=== PATIENT | male | born 1950 | race Caucasian/White ===

== ENCOUNTER 2018-06-23 15:10 | Emergency (ER) | payer MEDICARE, BC ==
[2018-06-23] MEDS ORDERED: Diphtheria,Pertussis(Acell),Tetanus Vaccine 0.5 ML Syringe IM ONE (15:32)
--- NOTE | 2018-06-23 15:35 | EDM.PDOC ---
ED HPI GENERAL MEDICAL PROBLEM - General Chief Complaint: Upper Extremity Injury/Pain Stated Complaint: RIGHT PINKIE FINGER CUT Time Seen by Provider: 06/23/18 15:33 Source of Information: Reports: Patient History Limitations: Reports: No Limitations - History of Present Illness INITIAL COMMENTS - FREE TEXT/NARRATIVE: HISTORY AND PHYSICAL: History of present illness: Patient is a 67-year-old male here with complaint of left pinky finger injury. Patient states that a cow kicked a gate smashing his finger in the gate causing a partial finger amputation. He is uncertain of his last tetanus. Review of systems: As per history of present illness and below otherwise all systems reviewed and negative. Past medical history: As per history of present illness and as reviewed below otherwise noncontributory. Surgical history: As per history of present illness and as reviewed below otherwise noncontributory. Social history: No reported history of drug or alcohol abuse. Family history: As per history of present illness and as reviewed below otherwise noncontributory. Physical exam: General: Patient sitting comfortably in no acute distress and nontoxic appearing HEENT: Atraumatic, normocephalic, pupils reactive, negative for conjunctival pallor or scleral icterus, mucous membranes moist, throat clear, neck supple, nontender, trachea midline. No meningeal signs. Lungs: Clear to auscultation, breath sounds equal bilaterally, chest nontender. Heart: S1S2, regular, negative for clicks, rubs, or overt murmur. Abdomen: Soft, nondistended, nontender. Negative for masses or hepatosplenomegaly. Negative for costovertebral tenderness. No rigidity, rebound , guarding. Pelvis: Stable nontender. Genitourinary: Deferred. Rectal: Deferred. Extremities: Right pinky finger partial amputation with distal phalanx exposed. negative for cords or calf pain. Neurovascular unremarkable. Neuro: Awake, alert, oriented. Cranial nerves II through XII unremarkable. Cerebellum unremarkable. Motor and sensory unremarkable throughout. Exam nonfocal. Notes: Dr. Porras saw patient in the ED, patient had partial amputation repair done in ED. Diagnostics: x-ray left pinky finger Therapeutics: Tdap Ancef 1g IM Digital block Prescriptions: Keflex Dazey Impression: hand injury, 5th distal left finger avulsion injury, open fracture Plan: 1. Take antibiotic as instructed, Dazey as needed for pain. Do not take Dazey while driving as it may make you drowsy 2. Follow up with Dr. Porras in 2 weeks 3. Return to ED as needed as discussed Definitive disposition and diagnosis as appropriate pending reevaluation and review of above. Left Finger-Little Pain Score (Numeric/FACES): 5 - Related Data Allergies Allergy/AdvReac Type Severity Reaction Status Date / Time No Known Allergies Allergy Verified 06/23/18 15:34 Home Meds: Home Meds Allopurinol [Zyloprim] 2 tab PO DAILY 03/31/18 [History] amLODIPine Besylate [Amlodipine Besylate] 10 mg PO DAILY 03/31/18 [History] atorvaSTATin Calcium [Atorvastatin Calcium] 10 mg PO DAILY 03/31/18 [History] Past Medical History HEENT History: Reports: Allergic Rhinitis Cardiovascular History: Reports: High Cholesterol, Hypertension Gastrointestinal History: Reports: None Musculoskeletal History: Reports: Gout Other Musculoskeletal History: states possible pelvic fx years ago due to a fall off a horse Endocrine/Metabolic History: Reports: Obesity/BMI 30+ - Past Surgical History Head Surgeries/Procedures: Reports: None GI Surgical History: Reports: Colonoscopy Musculoskeletal Surgical History: Reports: Other (See Below) Other Musculoskeletal Surgeries/Procedures:: partial (tip) pointer finger amputation Review of Systems - Review of Systems Review Of Systems: ROS reveals no pertinent complaints other than HPI. ED EXAM, GENERAL - Physical Exam Exam: See Below (see dictation) Course - Vital Signs Last Recorded V/S: Last Vital Signs Temp 97.9 F 06/23/18 15:28 Pulse 96 06/23/18 15:28 Resp 20 06/23/18 15:28 BP 139/93 H 06/23/18 15:28 Pulse Ox 98 06/23/18 15:28 - Orders/Labs/Meds Orders: Active Orders 24 hr Category Date Time Status Vaccines to be Administered [RC] PER UNIT ROUTINE Care 06/23/18 15:32 Active Meds: Medications Discontinued Medications Generic Name Dose Route Start Last Admin Trade Name Freq PRN Reason Stop Dose Admin Bupivacaine HCl 10 ml 06/23/18 15:43 06/23/18 15:55 Sensorcaine-Mpf 0.5% INJECT 06/23/18 15:44 10 ml ONETIME ONE Administration Bupivacaine HCl Confirm 06/23/18 16:55 06/23/18 17:34 Sensorcaine-Mpf 0.25% Administered 06/23/18 16:56 Not Given Dose 10 ml .ROUTE .STK-MED ONE Bupivacaine HCl 10 ml 06/23/18 16:57 06/23/18 17:33 Sensorcaine-Mpf 0.25% INJECT 06/23/18 16:58 10 ml ONETIME ONE Administration Cefazolin Sodium 1 gm 06/23/18 15:44 06/23/18 15:55 Ancef IM 06/23/18 15:45 1 gm ONETIME ONE Administration Diphtheria/Tetanus/Acell Pertussis 0.5 ml 06/23/18 15:32 06/23/18 15:42 Adacel IM 06/23/18 15:33 0.5 ml .ONCE ONE Administration Departure - Departure Time of Disposition: 17:38 Disposition: Home, Self-Care 01 Condition: Good Clinical Impression: Avulsion, finger tip, Hand injury - Discharge Information Instructions: Traumatic Finger Amputation, Sutured Wound Care Referrals: Harjeet Constantino MD [Primary Care Provider] - Saloni Porras MD [Physician] - 2 Weeks (partial ampution repair follow up ) Forms: ED Department Discharge Additional Instructions: The following information is given to patients seen in the emergency department who are being discharged to home. This information is to outline your options for follow-up care. We provide all patients seen in our emergency department with a follow-up referral. The need for follow-up, as well as the timing and circumstances, are variable depending upon the specifics of your emergency department visit. If you don't have a primary care physician on staff, we will provide you with a referral. We always advise you to contact your personal physician following an emergency department visit to inform them of the circumstance of the visit and for follow-up with them and/or the need for any referrals to a consulting specialist. The emergency department will also refer you to a specialist when appropriate. This referral assures that you have the opportunity for follow-up care with a specialist. All of these measure are taken in an effort to provide you with optimal care, which includes your follow-up. Under all circumstances we always encourage you to contact your private physician who remains a resource for coordinating your care. When calling for follow-up care, please make the office aware that this follow-up is from your recent emergency room visit. If for any reason you are refused follow-up, please contact the [facility] Emergency Department at and asked to speak to the emergency department charge nurse. [facility] Specialty Care - Hand & Plastic Surgery Professional Building [address] [place] [address], [address] [place] [address] 1. Take antibiotic as instructed, Dazey as needed for pain. Do not take Dazey while driving as it may make you drowsy 2. Follow up with Dr. Porras in 2 weeks 3. Return to ED as needed as discussed - My Orders Last 24 Hours: My Active Orders 06/23/18 15:32 Vaccines to be Administered [RC] PER UNIT ROUTINE - Assessment/Plan Last 24 Hours: My Active Orders 06/23/18 15:32 Vaccines to be Administered [RC] PER UNIT ROUTINE
[2018-06-23] MEDS ORDERED: Bupivacaine 0.5% 10 ML SDV INJECT ONE (15:43)
[2018-06-23] MEDS ORDERED: ceFAZolin 1 GM Vial IM ONE (15:44)
--- NOTE | 2018-06-23 16:40 | CR ---
EXAMINATION: Left hand, fifth digit HISTORY: Injury COMPARISON: None TECHNIQUE: 3 views FINDINGS/IMPRESSION: There is an amputation of the distal aspect of the fifth digit involving a very small portion of the distal phalanx. The remaining osseous structures and joint spaces appear preserved. Bone mineralization is otherwise normal.
[2018-06-23] MEDS ORDERED: Bupivacaine 0.25% 10 ML SDV ONE (16:55)
[2018-06-23] MEDS ORDERED: Bupivacaine 0.25% 10 ML SDV INJECT ONE (16:57)
== END 2018-06-23 17:52 | disposition home or self-care (01) ==
LOC: MW.ED 15:10
DX: S62.637B Displaced fracture of distal phalanx of left little finger, initial encounter for open fracture (principal); I10 Essential (primary) hypertension; E66.9 Obesity, unspecified; Z23 Encounter for immunization; Z79.899 Other long term (current) drug therapy; W23.0XXA Caught, crushed, jammed, or pinched between moving objects, initial encounter
CPT/HCPCS: 64450; 73140; 90471; 90715; 96372; 99283; J0690; J3490

== ENCOUNTER 2021-03-04 14:49 | Observation (INO) | payer MEDICARE, OTHER ==
--- NOTE | 2021-03-04 15:27 | EDM.PDOC ---
ED HPI GENERAL MEDICAL PROBLEM - General Chief Complaint: Respiratory Problem Stated Complaint: COUGH, SOB Time Seen by Provider: 03/04/21 14:51 Source of Information: Reports: Patient History Limitations: Reports: No Limitations - History of Present Illness INITIAL COMMENTS - FREE TEXT/NARRATIVE: Patient is a 70-year-old male who presents today for chronic cough. Patient has had a cough for the past 4 weeks. States he saw his doctor multiple times been given codeine cough syrup he is taking Tessalon Perles as well as an albuterol inhaler and he says his cough. He becomes concerned because he has a coughing fit and it sometimes makes him lightheaded he was in a pass out. He denies any chest pain any shortness of breath or any other complaints his main concern is a cough he said he had x-rays done and also been tested for Covid has been negative. ribs Pain Score (Numeric/FACES): 7 - Related Data Allergies Allergy/AdvReac Type Severity Reaction Status Date / Time No Known Allergies Allergy Verified 03/04/21 15:00 Home Meds: Home Meds allopurinoL [Zyloprim] 2 tab PO DAILY 03/31/18 [History] amLODIPine Besylate [Amlodipine Besylate] 10 mg PO DAILY 03/31/18 [History] atorvaSTATin Calcium [Atorvastatin Calcium] 10 mg PO DAILY 03/31/18 [History] Albuterol Sulfate [Albuterol Sulfate Hfa] 8.5 gm IH 03/04/21 [History] Azelastine [Astelin Nasal Soln] 2 inhalation DEANDRE BID 03/04/21 [History] Benzonatate [Tessalon Perles] 100 mg PO TID 03/04/21 [History] Codeine/guaiFENesin [guaiFENesin-Codeine Syrup] 5 ml PO Q4H 03/04/21 [History] Past Medical History HEENT History: Reports: Allergic Rhinitis Cardiovascular History: Reports: High Cholesterol, Hypertension Gastrointestinal History: Reports: None Musculoskeletal History: Reports: Gout Other Musculoskeletal History: states possible pelvic fx years ago due to a fall off a horse Endocrine/Metabolic History: Reports: Obesity/BMI 30+ - Infectious Disease History Infectious Disease History: Reports: Chicken Pox - Past Surgical History Head Surgeries/Procedures: Reports: None GI Surgical History: Reports: Colonoscopy Musculoskeletal Surgical History: Reports: Other (See Below) Other Musculoskeletal Surgeries/Procedures:: partial (tip) pointer finger amputation Social & Family History - Tobacco Use Month/Year Tobacco Last Used: chewing tobacco - Recreational Drug Use Recreational Drug Use: No ED ROS GENERAL - Review of Systems Review Of Systems: See Below Constitutional: Reports: No Symptoms HEENT: Reports: No Symptoms Respiratory: Reports: Cough Cardiovascular: Reports: No Symptoms Endocrine: Reports: No Symptoms GI/Abdominal: Reports: No Symptoms : Reports: No Symptoms Musculoskeletal: Reports: No Symptoms Skin: Reports: No Symptoms Neurological: Reports: No Symptoms Psychiatric: Reports: No Symptoms Hematologic/Lymphatic: Reports: No Symptoms Immunologic: Reports: No Symptoms ED EXAM, GENERAL - Physical Exam Exam: See Below Exam Limited By: No Limitations General Appearance: Alert, WD/WN, No Apparent Distress Eye Exam: Bilateral Eye: EOMI, PERRL Ears: Normal External Exam Nose: Normal Inspection Head: Atraumatic Neck: Normal Inspection, Supple, Non-Tender Respiratory/Chest: No Respiratory Distress, Lungs Clear, Normal Breath Sounds Cardiovascular: Normal Peripheral Pulses, Regular Rate, Rhythm GI/Abdominal: Normal Bowel Sounds Extremities: Normal Inspection, Normal Range of Motion, Non-Tender Neurological: Alert, Oriented, Normal Cognition, Normal Gait #1 Interpretation EKG Date: 03/04/21 Time: 15:30 Rhythm: A-Fib Rate (Beats/Min): 119 ST-T: Normal #2 Interpretation EKG Date: 03/04/21 Time: 15:55 Rhythm: A-Fib Rate (Beats/Min): 79 ST-T: Normal Course - Vital Signs Last Recorded V/S: Last Vital Signs Temp 97.5 F 03/04/21 14:53 Pulse 88 03/04/21 16:23 Resp 16 03/04/21 14:53 BP 132/64 03/04/21 16:23 Pulse Ox 96 03/04/21 14:53 - Orders/Labs/Meds Orders: Active Orders 24 hr Category Date Time Status CORONAVIRUS COVID-19 DAWN [MOLEC] Stat Lab 03/04/21 16:08 Ordered Labs: Laboratory Tests 03/04/21 03/04/21 Range/Units 15:37 15:37 WBC 9.49 (4.0-11.0) K/uL RBC 5.13 (4.50-5.90) M/uL Hgb 15.5 (13.0-17.0) g/dL Hct 44.2 (38.0-50.0) % MCV 86.2 (80.0-98.0) fL MCH 30.2 (27.0-32.0) pg MCHC 35.1 (31.0-37.0) g/dL RDW Std Deviation 39.7 (28.0-62.0) fl RDW Coeff of Kalie 13 (11.0-15.0) % Plt Count 252 (150-400) K/uL MPV 9.70 (7.40-12.00) fL Neut % (Auto) 63.6 (48.0-80.0) % Lymph % (Auto) 23.6 (16.0-40.0) % [place] % (Auto) 8.6 (0.0-15.0) % Eos % (Auto) 3.9 (0.0-7.0) % Baso % (Auto) 0.3 (0.0-1.5) % Neut # (Auto) 6.0 H (1.4-5.7) K/uL Lymph # (Auto) 2.2 (0.6-2.4) K/uL [place] # (Auto) 0.8 (0.0-0.8) K/uL Eos # (Auto) 0.4 (0.0-0.7) K/uL Baso # (Auto) 0.0 (0.0-0.1) K/uL Nucleated RBC % 0.0 /100WBC Nucleated RBCs # 0 K/uL Sodium 138 (136-148) mmol/L Potassium 3.9 (3.5-5.1) mmol/L Chloride 101 (98-107) mmol/L Carbon Dioxide 25.4 (21.0-32.0) mmol/L BUN 20 H (7.0-18.0) mg/dL Creatinine 1.4 H (0.8-1.3) mg/dL Est Cr Clr Drug Dosing 52.14 mL/min Estimated GFR (MDRD) 50.4 ml/min Glucose 150 H (74-106) mg/dL Calcium 9.6 (8.5-10.1) mg/dL Total Bilirubin 0.7 (0.2-1.0) mg/dL AST 43 H (15-37) IU/L ALT 69 H (14-63) IU/L Alkaline Phosphatase 86 (46-116) U/L Creatine Kinase 134 (26-308) U/L Troponin I < 0.050 (0.000-0.056) ng/mL Total Protein 8.2 (6.4-8.2) g/dL Albumin 3.9 (3.4-5.0) g/dL Globulin 4.3 H (2.6-4.0) g/dL Albumin/Globulin Ratio 0.9 (0.9-1.6) Meds: Medications Discontinued Medications Generic Name Dose Route Start Last Admin Trade Name Freq PRN Reason Stop Dose Admin Diltiazem HCl 20 mg 03/04/21 15:39 03/04/21 15:43 Diltiazem 25 Mg/5 Ml Sdv IVPUSH 03/04/21 15:40 20 mg ONETIME ONE Administration Diltiazem HCl 120 mg 03/04/21 15:49 03/04/21 16:23 Diltiazem 120 Mg Cap.Cd PO 03/04/21 15:50 120 mg ONETIME ONE Administration - Re-Assessments/Exams Free Text/Narrative Re-Assessment/Exam: 03/04/21 16:24 Patient heart rate down to 70s now after the IV diltiazem will give p.o. and admit patient to hospital for observation. Departure - Departure Time of Disposition: 16:25 Disposition: Refer to Observation Condition: Good Clinical Impression: A-fib - Discharge Information Forms: ED Department Discharge Critical Care Note - Critical Care Note Total Time (mins): 45 Comments: Critical Care Procedure Note Authorized and Performed by: Dr. Maradiaga Total critical care time: Approximately Due to a high probability of clinically significant, life threatening deterioration, the patient required my highest level of preparedness to intervene emergently and I personally spent this critical care time directly and personally managing the patient. This critical care time included obtaining a history; examining the patient; pulse oximetry; ordering and review of studies; arranging urgent treatment with development of a management plan; evaluation of patient's response to treatment; frequent reassessment; and, discussions with other providers. This critical care time was performed to assess and manage the high probability of imminent, life-threatening deterioration that could result in multi-organ failure. It was exclusive of separately billable procedures and treating other patients and teaching time. Sepsis Event Note (ED) - Evaluation Sepsis Screening Result: No Definite Risk - Focused Exam Vital Signs: Vital Signs Temp Pulse Pulse Resp BP BP Pulse Ox 03/04/21 16:23 88 132/64 03/04/21 14:53 97.5 F 98 16 152/98 H 96 - My Orders Last 24 Hours: My Active Orders 03/04/21 16:08 CORONAVIRUS COVID-19 DAWN [MOLEC] Stat - Assessment/Plan Last 24 Hours: My Active Orders 03/04/21 16:08 CORONAVIRUS COVID-19 DAWN [MOLEC] Stat Plan: Patient 70-year-old male who presents today for chronic cough. Patient states that he seen multiple doctors been given multiple days with cough and it is helping out. On exam lungs are clear he satting 90% on room air. His heart rate does range in the 1 teens so we will get EKG and labs and will reassess patient.
[2021-03-04] MEDS ORDERED: Diltiazem 25 MG/5 ML SDV IVPUSH ONE (15:39)
[2021-03-04] MEDS ORDERED: Diltiazem 120 MG Cap.CD PO ONE (15:49)
[2021-03-04 16:14] LABS: BLOOD UREA NITROGEN,BUN 20 mg/dL (7.0-18.0); CARBON DIOXIDE,CO2 25.4 mmol/L (21.0-32.0); CHLORIDE,CL 101 mmol/L (98-107); GLUCOSE RANDOM 150 mg/dL (74-106); POTASSIUM,K 3.9 mmol/L (3.5-5.1); SODIUM,NA 138 mmol/L (136-148)
--- NOTE | 2021-03-04 16:20 | CR ---
INDICATION: Tachycardia. TECHNIQUE: Chest 1 view. COMPARISON: None. FINDINGS: Cardiovascular and mediastinum: Heart size and vasculature are normal in caliber and appearance. Lungs and pleural spaces: Lungs are clear. No sign of infiltrate or mass. No sign of pleural effusion. No pneumothorax. Bones and soft tissues: No significant findings. IMPRESSION: No acute or significant findings. Dictated by Ellis Medeiros MD @ 03/04/2021 4:18:39 PM (Electronically Signed)
[2021-03-04] MEDS ORDERED: Benzonatate 100 MG Cap PO PRN (18:59)
[2021-03-04] MEDS ORDERED: Codeine/guaiFENesin 10-100 MG/5 ML Syrup 5 ML Cup PO PRN (20:33)
[2021-03-04] MEDS ORDERED: ALBUTEROL INH SCH (21:00)
[2021-03-04] MEDS ORDERED: ALBUTEROL INH PRN (21:15)
[2021-03-04] MEDS: AZELASTINE 0.1% SCH (21:39)
--- NOTE | 2021-03-04 23:38 | PCM.HP.2 ---
H&P History of Present Illness - General Date of Service: 03/05/21 Admit Problem/Dx: Admission Diagnosis/Problem Admission Diagnosis/Problem Atrial fibrillation - History of Present Illness Initial Comments - Free Text/Narative: 70 yo male with pmh of hypertension who presents to the ED with complaint of cough for past three weeks. Patient reports his cough fits are so severe that he gets lightheaded. He does report a runny nose. He denies any chest pain or shortness of breath. He has tried antihistamines and Flonase. In the ED he was noted to be in atrial fibrillation with heart rate in the 130s He was given IV diltiazem followed by oral diltiazem which has improved his heart rated. ribs Pain Score (Numeric/FACES): 7 - Related Data Allergies/Adverse Reactions: Allergies Allergy/AdvReac Type Severity Reaction Status Date / Time No Known Allergies Allergy Verified 03/04/21 18:43 Home Medications: Home Meds allopurinoL [Zyloprim] 2 tab PO DAILY 03/31/18 [History] amLODIPine Besylate [Amlodipine Besylate] 10 mg PO DAILY 03/31/18 [History] atorvaSTATin Calcium [Atorvastatin Calcium] 10 mg PO DAILY 03/31/18 [History] Albuterol Sulfate [Albuterol Sulfate Hfa] 1 puff IH Q4H PRN 03/04/21 [History] Azelastine [Astelin Nasal Soln] 2 inhalation DEANDRE BID 03/04/21 [History] Benzonatate [Tessalon Perles] 100 mg PO TID 03/04/21 [History] Codeine/guaiFENesin [guaiFENesin-Codeine Syrup] 5 ml PO Q4H 03/04/21 [History] Past Medical History HEENT History: Reports: Allergic Rhinitis Cardiovascular History: Reports: High Cholesterol, Hypertension Gastrointestinal History: Reports: None Musculoskeletal History: Reports: Gout, Other (See Below) Other Musculoskeletal History: states possible pelvic fx years ago due to a fall off a horse; fractured sternum from horse rolling on top of him Endocrine/Metabolic History: Reports: Obesity/BMI 30+ - Infectious Disease History Infectious Disease History: Reports: Chicken Pox, Shingles - Past Surgical History Head Surgeries/Procedures: Reports: None HEENT Surgical History: Reports: None Cardiovascular Surgical History: Reports: None GI Surgical History: Reports: Colonoscopy Musculoskeletal Surgical History: Reports: Other (See Below) Other Musculoskeletal Surgeries/Procedures:: partial (tip) pointer finger amputation, half amputation of left pinky finger Social & Family History - Family History Oncologic: Reports: Lung, Pancreatic, Other (See Below) Other Oncologic Family History: Mother had pancreatic, father had lung - Tobacco Use Tobacco Use Status *Q: Current Every Day Tobacco User Years of Tobacco use: 35 Packs/Tins Daily: 0.2 Used Tobacco, but Quit: Yes Month/Year Tobacco Last Used: 1983 Tobacco Use Comment: Quit cigarrettes 35 years ago, uses chew daily. - Caffeine Use Caffeine Use: Reports: Coffee - Recreational Drug Use Recreational Drug Use: No H&P Review of Systems - Review of Systems: Review Of Systems: Comprehensive ROS is negative, except as noted in HPI. Exam - Exam Exam: See Below - Vital Signs Vital Signs: Last Vital Signs Temp 36.7 C 03/04/21 20:44 Pulse 93 03/04/21 20:44 Resp 18 03/04/21 20:44 BP 139/77 03/04/21 20:44 Pulse Ox 95 03/04/21 20:44 Weight: 114.351 kg - Exam General: Alert, Oriented HEENT: Mucosa Moist & [place] Lungs: Clear to Auscultation, Normal Respiratory Effort Cardiovascular: Regular Rate, Regular Rhythm GI/Abdominal Exam: Normal Bowel Sounds, Soft, Non-Tender Extremities: Non-Tender, No Pedal Edema Skin: Warm, Dry, Intact Neurological: No: Cranial Nerves Intact - Patient Data Lab Results Last 24 hrs: Laboratory Results - last 24 hr 03/04/21 03/04/21 03/04/21 Range/Units 15:37 15:37 16:26 WBC 9.49 (4.0-11.0) K/uL RBC 5.13 (4.50-5.90) M/uL Hgb 15.5 (13.0-17.0) g/dL Hct 44.2 (38.0-50.0) % MCV 86.2 (80.0-98.0) fL MCH 30.2 (27.0-32.0) pg MCHC 35.1 (31.0-37.0) g/dL RDW Std Deviation 39.7 (28.0-62.0) fl RDW Coeff of Kalie 13 (11.0-15.0) % Plt Count 252 (150-400) K/uL MPV 9.70 (7.40-12.00) fL Neut % (Auto) 63.6 (48.0-80.0) % Lymph % (Auto) 23.6 (16.0-40.0) % [place] % (Auto) 8.6 (0.0-15.0) % Eos % (Auto) 3.9 (0.0-7.0) % Baso % (Auto) 0.3 (0.0-1.5) % Neut # (Auto) 6.0 H (1.4-5.7) K/uL Lymph # (Auto) 2.2 (0.6-2.4) K/uL [place] # (Auto) 0.8 (0.0-0.8) K/uL Eos # (Auto) 0.4 (0.0-0.7) K/uL Baso # (Auto) 0.0 (0.0-0.1) K/uL Nucleated RBC % 0.0 /100WBC Nucleated RBCs # 0 K/uL Sodium 138 (136-148) mmol/L Potassium 3.9 (3.5-5.1) mmol/L Chloride 101 (98-107) mmol/L Carbon Dioxide 25.4 (21.0-32.0) mmol/L BUN 20 H (7.0-18.0) mg/dL Creatinine 1.4 H (0.8-1.3) mg/dL Est Cr Clr Drug Dosing 52.14 mL/min Estimated GFR (MDRD) 50.4 ml/min Glucose 150 H (74-106) mg/dL Calcium 9.6 (8.5-10.1) mg/dL Total Bilirubin 0.7 (0.2-1.0) mg/dL AST 43 H (15-37) IU/L ALT 69 H (14-63) IU/L Alkaline Phosphatase 86 (46-116) U/L Creatine Kinase 134 (26-308) U/L Troponin I < 0.050 (0.000-0.056) ng/mL Total Protein 8.2 (6.4-8.2) g/dL Albumin 3.9 (3.4-5.0) g/dL Globulin 4.3 H (2.6-4.0) g/dL Albumin/Globulin Ratio 0.9 (0.9-1.6) SARS-CoV-2 RNA (DAWN) NEGATIVE (NEGATIVE) Result Diagrams: 03/05/21 05:31 03/05/21 05:31 Sepsis Event Note - Evaluation Sepsis Screening Result: No Definite Risk - Focused Exam Vital Signs: Vital Signs Temp Pulse Pulse Resp BP BP Pulse Ox 03/04/21 20:44 36.7 C 93 18 139/77 95 03/04/21 18:00 36.5 C 69 18 144/89 H 95 03/04/21 17:45 102 H 142/89 H 100 03/04/21 17:08 90 16 142/89 H 96 03/04/21 16:23 88 132/64 03/04/21 14:53 36.4 C 98 16 152/98 H 96 - Problem List (1) A-fib SNOMED Code(s): 43237565 ICD Code: I48.91 - UNSPECIFIED ATRIAL FIBRILLATION Status: Acute Current Visit: No Problem List Initiated/Reviewed/Updated: Yes Orders Last 24hrs: Active Orders 24 hr Category Date Time Status Patient Status [ADT] Routine ADT 03/04/21 16:26 Active Telemetry Monitoring [Cardiac Monitoring] [RC] . Care 03/04/21 19:01 Active DIRECTED Regular Diet [DIET] Diet 03/04/21 Dinner Active Albuterol Sulfate Med 03/04/21 21:15 Active 0 gm INH Q4H PRN Azelastine [Astelin Nasal Soln] Med 03/04/21 21:00 Active 0 inhalation .XX BID Benzonatate [Tessalon Perles] Med 03/04/21 18:59 Active 100 mg PO Q6H PRN Codeine/guaiFENesin [Robitussin AC] Med 03/04/21 20:33 Active 5 ml PO Q6H PRN allopurinoL [Zyloprim] Med 03/05/21 09:00 Active 200 mg PO DAILY atorvaSTATin [Lipitor] Med 03/05/21 09:00 Active 10 mg PO DAILY Medication Orders Allopurinol (Allopurinol 100 Mg Tab) 200 mg PO DAILY BEN Atorvastatin Calcium (Atorvastatin 10 Mg Tab) 10 mg PO DAILY BEN Benzonatate (Benzonatate 100 Mg Cap) 100 mg PO Q6H PRN PRN Reason: Cough Guaifenesin/Codeine Phosphate (Codeine/Guaifenesin 10-100 Mg/5 Ml Syrup 5 Ml Cup) 5 ml PO Q6H PRN PRN Reason: Cough Azelastine 0.1% Nasal Soln Own Med 0 inhalation .XX BID BEN Last Admin: 03/04/21 21:39 Dose: Not Given Documented by: CHELY Albuterol Hfa Oral (Inhaler Own Med) 0 gm INH Q4H PRN PRN Reason: SOB,wheezing Assessment/Plan Comment:: 70 yo male admitted for atrial fibrillation with RVR. Patient is now rate controlled after starting diltiazem. We will monitor overnight on telemetry. We will need to discuss starting anticoagulation.
[2021-03-05 07:17] LABS: CARBON DIOXIDE,CO2 26.3 mmol/L (21.0-32.0); POTASSIUM,K 4.1 mmol/L (3.5-5.1)
[2021-03-05] MEDS: AZELASTINE 0.1% SCH (08:22)
[2021-03-05] MEDS ORDERED: atorvaSTATin 10 MG Tab PO SCH (09:00)
[2021-03-05] MEDS ORDERED: Allopurinol 100 MG Tab PO SCH (09:00)
[2021-03-05] MEDS ORDERED: Diltiazem 120 MG Cap.CD PO SCH (09:30)
[2021-03-05] MEDS ORDERED: methylPREDNISolone Sodium Succinate 125 MG/2 ML SDV IVPUSH ONE (09:52)
[2021-03-05] MEDS ORDERED: ALBUTEROL INH PRN (09:54)
[2021-03-05] MEDS ORDERED: Fluticasone/Salmeterol 250-50 MCG Inhalation Powder 14/Diskus INH SCH (10:00)
[2021-03-05] MEDS: Albuterol/Ipratropium 3.0-0.5 MG/3 ML Neb Soln NEB SCH ×2 (10:10→17:11)
[2021-03-05] MEDS ORDERED: Acetaminophen 325 MG Tab PO PRN (11:10)
--- NOTE | 2021-03-05 15:20 | PCM.DCSUM1 ---
Discharge Summary - Hospital Course Free Text/Narrative:: 70 y/o Obese male admitted with several days of coughing spells. He was found to have Afib with RVR. He was treated with IV cardizem. The following day his HR was controlled. He had a CXR which showed no evidence of pneumonia. His covid test was also negative. He was treated with nebs and steroids for a viral bronchitis. He later felt well enough to go home and did not require any supplemental oxygen. He was discharged on oral cardizem for his Afib. He also received Zithromax, albuterol INH as well as an Advair diskus. He was advised to see his PCP in 1-2 wks. An appointment with cardiology was made for him to have follow up on his 2DCHO and to discuss starting him on a DOAC for stroke prevention Condition on discharge: Pt was stable Activity: as tolerated Diet: regular/ heart healthy diet Follow up with PCP and cardiology in 1-2 wks. Diagnosis: Stroke: No - Discharge Data Discharge Date: 03/05/21 Discharge Disposition: Home, Self-Care 01 Condition: Stable - Referral to Home Health Primary Care Physician: PCP None - Discharge Diagnosis/Problem(s) (1) A-fib SNOMED Code(s): 63272485 ICD Code: I48.91 - UNSPECIFIED ATRIAL FIBRILLATION Status: Acute Current Visit: No - Patient Instructions Diet: Heart Healthy Diet Activity: As Tolerated Driving: May Drive Today - Discharge Plan *PRESCRIPTION DRUG MONITORING PROGRAM REVIEWED*: No *COPY OF PRESCRIPTION DRUG MONITORING REPORT IN PATIENT ERCI: No Prescriptions/Med Rec: Fluticasone/Salmeterol [Advair 250-50] 1 puff INH BID #1 diskus Azithromycin 500 mg PO DAILY 3 Days #3 tablet Diltiazem [Cardizem CD] 120 mg PO DAILY #60 cap.cd predniSONE [Prednisone] 10 mg PO DAILY #14 tab.ds.pk Home Medications: Home Meds allopurinoL [Zyloprim] 2 tab PO DAILY 03/31/18 [History] atorvaSTATin Calcium [Atorvastatin Calcium] 10 mg PO DAILY 03/31/18 [History] Albuterol Sulfate [Albuterol Sulfate Hfa] 1 puff IH Q4H PRN 03/04/21 [History] Azelastine [Astelin Nasal Soln] 2 inhalation DEANDRE BID 03/04/21 [History] Benzonatate [Tessalon Perles] 100 mg PO TID 03/04/21 [History] Azithromycin 500 mg PO DAILY 3 Days #3 tablet 03/05/21 [Rx] Codeine/guaiFENesin [Robitussin AC] 5 ml PO Q6H PRN cup 03/05/21 [Rx] Diltiazem [Cardizem CD] 120 mg PO DAILY #60 cap.cd 03/05/21 [Rx] Fluticasone/Salmeterol [Advair 250-50] 1 puff INH BID #1 diskus 03/05/21 [Rx] predniSONE [Prednisone] 10 mg PO DAILY #14 tab.ds.pk 03/05/21 [Rx] Patient Handouts: Azithromycin tablets, Prednisolone tablets, Diltiazem Oral Tablets, Atrial Fibrillation, [id number], Fluticasone; Salmeterol inhalation aerosol Referrals: Harjeet Cavazos MD [Physician] - 03/13/21 11:00 am Jaret Capellan MD [Physician] - 04/22/21 9:00 am - Discharge Summary/Plan Comment DC Time >30 min.: Yes Total # of Minutes for Discharge Time: 35 mins - General Info Admission Dx/Problem (Free Text: Admission Diagnosis/Problem Admission Diagnosis/Problem Atrial fibrillation - Patient Data Vitals - Most Recent: Last Vital Signs Temp 98.2 F 03/05/21 12:00 Pulse 100 03/05/21 12:00 Resp 18 03/05/21 12:00 BP 124/76 03/05/21 12:00 Pulse Ox 94 L 03/05/21 12:00 Weight - Most Recent: 252 lb 1.6 oz I&O - Last 24 hours: Intake & Output 03/05/21 03/05/21 03/05/21 06:59 14:59 22:59 Intake Total 600 Output Total 1000 Balance -400 Lab Results - Last 24 hrs: Laboratory Results - last 24 hr 03/04/21 03/04/21 03/04/21 Range/Units 15:37 15:37 16:26 WBC 9.49 (4.0-11.0) K/uL RBC 5.13 (4.50-5.90) M/uL Hgb 15.5 (13.0-17.0) g/dL Hct 44.2 (38.0-50.0) % MCV 86.2 (80.0-98.0) fL MCH 30.2 (27.0-32.0) pg MCHC 35.1 (31.0-37.0) g/dL RDW Std Deviation 39.7 (28.0-62.0) fl RDW Coeff of Kalie 13 (11.0-15.0) % Plt Count 252 (150-400) K/uL MPV 9.70 (7.40-12.00) fL Neut % (Auto) 63.6 (48.0-80.0) % Lymph % (Auto) 23.6 (16.0-40.0) % Baker % (Auto) 8.6 (0.0-15.0) % Eos % (Auto) 3.9 (0.0-7.0) % Baso % (Auto) 0.3 (0.0-1.5) % Neut # (Auto) 6.0 H (1.4-5.7) K/uL Lymph # (Auto) 2.2 (0.6-2.4) K/uL Baker # (Auto) 0.8 (0.0-0.8) K/uL Eos # (Auto) 0.4 (0.0-0.7) K/uL Baso # (Auto) 0.0 (0.0-0.1) K/uL Nucleated RBC % 0.0 /100WBC Nucleated RBCs # 0 K/uL Sodium 138 (136-148) mmol/L Potassium 3.9 (3.5-5.1) mmol/L Chloride 101 (98-107) mmol/L Carbon Dioxide 25.4 (21.0-32.0) mmol/L BUN 20 H (7.0-18.0) mg/dL Creatinine 1.4 H (0.8-1.3) mg/dL Est Cr Clr Drug Dosing 52.14 mL/min Estimated GFR (MDRD) 50.4 ml/min Glucose 150 H (74-106) mg/dL Calcium 9.6 (8.5-10.1) mg/dL Magnesium (1.8-2.4) mg/dL Total Bilirubin 0.7 (0.2-1.0) mg/dL AST 43 H (15-37) IU/L ALT 69 H (14-63) IU/L Alkaline Phosphatase 86 (46-116) U/L Creatine Kinase 134 (26-308) U/L Troponin I < 0.050 (0.000-0.056) ng/mL Total Protein 8.2 (6.4-8.2) g/dL Albumin 3.9 (3.4-5.0) g/dL Globulin 4.3 H (2.6-4.0) g/dL Albumin/Globulin Ratio 0.9 (0.9-1.6) TSH, Ultra Sensitive (0.36-3.74) uIU/mL SARS-CoV-2 RNA (DAWN) NEGATIVE (NEGATIVE) 03/05/21 03/05/21 03/05/21 Range/Units 05:31 05:31 05:31 WBC 8.65 (4.0-11.0) K/uL RBC 5.25 (4.50-5.90) M/uL Hgb 15.6 (13.0-17.0) g/dL Hct 45.3 (38.0-50.0) % MCV 86.3 (80.0-98.0) fL MCH 29.7 (27.0-32.0) pg MCHC 34.4 (31.0-37.0) g/dL RDW Std Deviation 40.0 (28.0-62.0) fl RDW Coeff of Kalie 13 (11.0-15.0) % Plt Count 261 (150-400) K/uL MPV 10.30 (7.40-12.00) fL Neut % (Auto) 57.0 (48.0-80.0) % Lymph % (Auto) 28.0 (16.0-40.0) % Baker % (Auto) 11.3 (0.0-15.0) % Eos % (Auto) 3.5 (0.0-7.0) % Baso % (Auto) 0.2 (0.0-1.5) % Neut # (Auto) 4.9 (1.4-5.7) K/uL Lymph # (Auto) 2.4 (0.6-2.4) K/uL Baker # (Auto) 1.0 H (0.0-0.8) K/uL Eos # (Auto) 0.3 (0.0-0.7) K/uL Baso # (Auto) 0.0 (0.0-0.1) K/uL Nucleated RBC % 0.0 /100WBC Nucleated RBCs # 0 K/uL Sodium 138 (136-148) mmol/L Potassium 4.1 (3.5-5.1) mmol/L Chloride 102 (98-107) mmol/L Carbon Dioxide 26.3 (21.0-32.0) mmol/L BUN 18 (7.0-18.0) mg/dL Creatinine 1.3 (0.8-1.3) mg/dL Est Cr Clr Drug Dosing 56.15 mL/min Estimated GFR (MDRD) 54.9 ml/min Glucose 104 (74-106) mg/dL Calcium 9.1 (8.5-10.1) mg/dL Magnesium 2.4 (1.8-2.4) mg/dL Total Bilirubin (0.2-1.0) mg/dL AST (15-37) IU/L ALT (14-63) IU/L Alkaline Phosphatase (46-116) U/L Creatine Kinase (26-308) U/L Troponin I (0.000-0.056) ng/mL Total Protein (6.4-8.2) g/dL Albumin (3.4-5.0) g/dL Globulin (2.6-4.0) g/dL Albumin/Globulin Ratio (0.9-1.6) TSH, Ultra Sensitive 2.41 (0.36-3.74) uIU/mL SARS-CoV-2 RNA (DAWN) (NEGATIVE) Med Orders - Current: Current Medications Acetaminophen (Acetaminophen 325 Mg Tab) 650 mg PO Q4H PRN PRN Reason: Pain Last Admin: 03/05/21 12:27 Dose: 650 mg Documented by: Albuterol/Ipratropium (Albuterol/Ipratropium 3.0-0.5 Mg/3 Ml Neb Soln) 3 ml NEB Q4HRRT [facility] Last Admin: 03/05/21 10:10 Dose: 3 ml Documented by: Allopurinol (Allopurinol 100 Mg Tab) 200 mg PO DAILY [facility] Last Admin: 03/05/21 08:19 Dose: 200 mg Documented by: Atorvastatin Calcium (Atorvastatin 10 Mg Tab) 10 mg PO DAILY [facility] Last Admin: 03/05/21 08:19 Dose: 10 mg Documented by: Benzonatate (Benzonatate 100 Mg Cap) 100 mg PO Q6H PRN PRN Reason: Cough Diltiazem HCl (Diltiazem 120 Mg Cap.Cd) 120 mg PO DAILY [facility] Last Admin: 03/05/21 11:06 Dose: 120 mg Documented by: Guaifenesin/Codeine Phosphate (Codeine/Guaifenesin 10-100 Mg/5 Ml Syrup 5 Ml Cup) 5 ml PO Q6H PRN PRN Reason: Cough Azelastine 0.1% Nasal Soln Own Med 0 each NASBOTH BID [facility] Albuterol Hfa Oral (Inhaler Own Med) 0 each INH Q4H PRN PRN Reason: SOB,wheezing Fluticasone/Salmeterol (Fluticasone/Salmeterol 250-50 Mcg Inhalation Powder 14/Diskus) 1 puff INH BID [facility] Last Admin: 03/05/21 10:57 Dose: 1 inhalation Documented by: Discontinued Medications Diltiazem HCl (Diltiazem 25 Mg/5 Ml Sdv) 20 mg IVPUSH ONETIME ONE Stop: 03/04/21 15:40 Last Admin: 03/04/21 15:43 Dose: 20 mg Documented by: Diltiazem HCl (Diltiazem 120 Mg Cap.Cd) 120 mg PO ONETIME ONE Stop: 03/04/21 15:50 Last Admin: 03/04/21 16:23 Dose: 120 mg Documented by: Methylprednisolone Sodium Succinate (Methylprednisolone Sodium Succinate 125 Mg/2 Ml Sdv) 125 mg IVPUSH ONETIME ONE Stop: 03/05/21 09:53 Last Admin: 03/05/21 10:58 Dose: 125 mg Documented by: Albuterol Hfa Oral (Inhaler Own Med) 0 gm INH BID [facility] Last Admin: 03/04/21 22:21 Dose: Not Given Documented by: Azelastine 0.1% Nasal Soln Own Med 0 inhalation .XX BID [facility] Last Admin: 03/05/21 08:22 Dose: Not Given Documented by: Albuterol Hfa Oral (Inhaler Own Med) 0 gm INH Q4H PRN PRN Reason: SOB,wheezing - Exam Physical Findings Comments:: General: Obese elderly male. In no acute distress. Alert, Oriented X 3 HEENT: Mucosa Moist & [place] Lungs: Clear to Auscultation, Normal Respiratory Effort Cardiovascular: Regular Rate, Regular Rhythm Abdomen: Obese ,soft, non tender. Normal Bowel Sounds, Soft, Non-Tender Extremities: Non-Tender, No Pedal Edema Neurological: No: Cranial Nerves Intact
[2021-03-05] MEDS ORDERED: AZELASTINE 0.1% NASBOTH SCH (21:00)
--- NOTE | 2021-03-09 13:06 | ECHO ---
EXAM DATE: 03/04/21 PATIENT'S AGE: 70 The ECHO report has been scanned into [employer] and can be seen in this patient's EMR (Electronic Medical Record) under the REPORTS section. The report has also been scanned into PACS. LELA
== END 2021-03-05 15:40 | disposition home or self-care (01) ==
LOC: MW.ED 14:49 → MW.MS 16:26
PROVIDERS: ADMIT Internal Medicine; ATTEND Internal Medicine
DX: I48.91 Unspecified atrial fibrillation (principal); I10 Essential (primary) hypertension; E78.00 Pure hypercholesterolemia, unspecified; E66.9 Obesity, unspecified; F17.210 Nicotine dependence, cigarettes, uncomplicated; Z79.899 Other long term (current) drug therapy; Z20.822 Contact with and (suspected) exposure to COVID-19; Z68.36 Body mass index [BMI] 36.0-36.9, adult
CPT/HCPCS: 36415; 71045; 80048; 80053; 82550; 83735; 84443; 84484; 85025; 93005; 93306; 94640; 96374; 96375; 99285; A9270; G0378; J2930; J3490; U0002; J7620-GY

== ENCOUNTER 2023-10-21 12:20 | Emergency (ER) | payer MEDICARE ==
[2023-10-21] MEDS ORDERED: Ketorolac 30 MG/ML SDV ONE ×2 (13:55→13:56)
[2023-10-21] MEDS ORDERED: Diazepam 2 MG Tab ONE ×2 (13:56)
[2023-10-21] MEDS ORDERED: Lidocaine 4% 1 each Patch ONE ×2 (13:56)
== END 2023-10-21 16:00 | disposition home or self-care (01) ==
LOC: MW.ED 12:25
DX: M54.50 Low back pain, unspecified (principal); I10 Essential (primary) hypertension; I48.91 Unspecified atrial fibrillation; Z75.8 Other problems related to medical facilities and other health care; Z79.01 Long term (current) use of anticoagulants
CPT/HCPCS: 72131; 96372; 99283; A9270; J1885

== ENCOUNTER 2024-04-16 11:12 | Emergency (ER) | payer MEDICARE ==
[2024-04-16] MEDS ORDERED: Sodium Chloride 0.9% 2.5 ML Syringe FLUSH PRN (11:32)
[2024-04-16] MEDS ORDERED: Sodium Chloride 0.9% 10 ML Syringe FLUSH PRN (11:32)
[2024-04-16 11:36] LABS: BASOPHILS ABSOLUTE AUTO 0.03 K/uL (0.00-0.20); BASOPHILS PERCENT AUTO 0.2 % (0.0-1.0); EOSINOPHILS ABSOLUTE AUTO 0.08 K/uL (0.00-0.45); EOSINOPHILS PERCENT AUTO 0.6 % (0.0-6.0); HEMATOCRIT 45.8 % (42.0-52.0); HEMOGLOBIN 16.1 g/dL (14.0-18.0); IMMATURE GRAN ABSOLUTE AUTO 0.06 K/uL (0.00-0.05); IMMATURE GRAN PERCENT AUTO 0.5 % (0.0-0.4); LYMPHOCYTES ABSOLUTE AUTO 3.05 K/uL (1.00-4.80); LYMPHOCYTES PERCENT AUTO 24.5 % (24.0-44.0); MEAN CORPUSCULAR HGB CONC 35.2 g/dL (32.0-36.0); MEAN CORPUSCULAR VOLUME 85.3 fL (83.0-99.0); MEAN PLATELET VOLUME 9.5 fL (9.4-12.4); MONOCYTES ABSOLUTE AUTO 0.87 K/uL (0.00-0.80); NEUTROPHILS ABSOLUTE AUTO 8.34 K/uL (1.80-7.70); NEUTROPHILS PERCENT AUTO 67.2 % (41.0-71.0); PLATELET COUNT,PLT 255 K/uL (150-400); RED BLOOD CELL COUNT 5.37 M/uL (4.52-5.90); WHITE BLOOD CELL COUNT,WBC 12.43 K/uL (3.9-11.3)
[2024-04-16 12:00] LABS: APPEARANCE,URINE CLEAR; COLOR,URINE ORANGE; GLUCOSE,URINE NEGATIVE (NEGATIVE); KETONES,URINE NEGATIVE (NEGATIVE); LEUKOCYTE ESTERASE,URINE NEGATIVE (NEGATIVE); NITRITE,URINE NEGATIVE (NEGATIVE); OCCULT BLOOD,URINE NEGATIVE (NEGATIVE); PH,URINE 5.5 (5.0-8.0); PROTEIN,URINE TRACE mg/dL (NEGATIVE); UROBILINOGEN,URINE 0.2 EU/dL (<2.0)
[2024-04-16 12:01] LABS: BILIRUBIN,URINE SMALL (NEGATIVE)
[2024-04-16 12:02] LABS: A/G RATIO 0.9 (0.9-1.6); ALBUMIN 3.8 g/dL (3.4-5.0); CALCIUM 9.6 mg/dL (8.5-10.1); CARBON DIOXIDE,CO2 24.1 mmol/L (21.0-32.0); CREATININE 1.4 mg/dL (0.8-1.3); EST CRCL DRUG DOSING (CG) 49.97 mL/min; POTASSIUM,K 4.2 mmol/L (3.5-5.1); PROTEIN TOTAL,TP 8.2 g/dL (6.4-8.2)
[2024-04-16 12:11] LABS: RBC,URINE 0-1 (0-2/HPF); WBC,URINE 0-2 (0-5/HPF)
[2024-04-16 12:12] LABS: BACTERIA,URINE RARE (NEGATIVE); EPITHELIAL CELLS,URINE FEW (NONE-FEW); MUCUS,URINE MODERATE (NONE-MOD)
[2024-04-16] MEDS: Iopamidol 755 MG/ML 500 ML Multipack Bottle IVPUSH STA (12:31)
== END 2024-04-16 13:25 | disposition home or self-care (01) ==
LOC: MW.ED 11:12
DX: K80.20 Calculus of gallbladder without cholecystitis without obstruction (principal); K57.32 Diverticulitis of large intestine without perforation or abscess without bleeding; I10 Essential (primary) hypertension; E78.00 Pure hypercholesterolemia, unspecified; E66.9 Obesity, unspecified; Z79.899 Other long term (current) drug therapy; Z75.8 Other problems related to medical facilities and other health care; Z68.36 Body mass index [BMI] 36.0-36.9, adult
CPT/HCPCS: 36415; 74177; 80053; 81001; 83690; 85025; 87428; 99284; Q9967

== ENCOUNTER 2024-05-29 07:11 | Day surgery (SDC) | payer MEDICARE ==
[~2024-05-29 07:11] MED LIST: Sodium Chloride 0.9% 10 ML Syringe FLUSH PRN; Sodium Chloride 0.9% 2.5 ML Syringe FLUSH PRN; Sodium Chloride 0.9% 20 ML SDV IV PRN
[2024-05-29] MEDS: Lactated Ringers 1,000 ML IV SCH (07:43)
[2024-05-29] MEDS ORDERED: Lidocaine 2% 5 ML SDV ONE (08:14)
[2024-05-29] MEDS ORDERED: Propofol 200 MG/20 ML SDV ONE (08:14)
== END 2024-05-29 09:55 | disposition home or self-care (01) ==
LOC: MW.SDS 07:11
PROVIDERS: ATTEND Surgery
DX: K57.30 Diverticulosis of large intestine without perforation or abscess without bleeding (principal); I48.91 Unspecified atrial fibrillation; I11.0 Hypertensive heart disease with heart failure; I50.30 Unspecified diastolic (congestive) heart failure; E78.00 Pure hypercholesterolemia, unspecified; E66.9 Obesity, unspecified; Z68.36 Body mass index [BMI] 36.0-36.9, adult; Z79.01 Long term (current) use of anticoagulants; Z79.899 Other long term (current) drug therapy
CPT/HCPCS: 45378; J2003; J2704; J7120